=== PATIENT | male | born 1950 | race Caucasian/White ===

== ENCOUNTER 2020-03-15 15:31 | Emergency (ER) | payer MEDICARE, MEDICAID ==
--- NOTE | 2020-03-15 15:33 | EDM.PDOC ---
ED HPI GENERAL MEDICAL PROBLEM - General Stated Complaint: MEDICAL VIA [facility] Time Seen by Provider: 03/15/20 15:31 Source of Information: Reports: Patient, Provider History Limitations: Reports: No Limitations - History of Present Illness INITIAL COMMENTS - FREE TEXT/NARRATIVE: Has had increased shortness of breath and cannot lie flat. Has significant past history of COPD, type 2 diabetes, and a CVA. WAs evaluated in an outside clinic and chest x-ray showed cardiomegaly and congestive heart failure. Troponin was also measured and was elevated. Onset: Today Duration: Getting Worse Location: Reports: Chest - Related Data Allergies Allergy/AdvReac Type Severity Reaction Status Date / Time Iodinated Contrast Media Allergy Mild Rash Verified 03/15/20 16:05 ED ROS GENERAL - Review of Systems Review Of Systems: See Below Reason Not Obtained: Decreased communication skills after CVA Constitutional: Denies: Fever HEENT: Reports: No Symptoms Respiratory: Reports: Shortness of Breath (Can't lay flat.), Wheezing, Cough Cardiovascular: Reports: Chest Pain Endocrine: Reports: Fatigue GI/Abdominal: Denies: Abdominal Pain Skin: Denies: Cyanosis ED EXAM, GENERAL - Physical Exam Exam: See Below Exam Limited By: Other (S/P CVA) General Appearance: Alert, Anxious, Moderate Distress Throat/Mouth: Normal Inspection Head: Atraumatic, Normocephalic Respiratory/Chest: Respiratory Distress, Crackles, Wheezing, Other (tachypnea) Cardiovascular: Regular Rate, Rhythm, No JVD Extremities: Pedal Edema, Other (pitting edema to knees.) Psychiatric: Anxious Course - Vital Signs Text/Narrative:: At 1645 I discussed the patient withAt 164 [facility] . Accepted ther for transport Last Recorded V/S: Last Vital Signs Temp 36.3 C 03/15/20 15:33 Pulse 133 H 03/15/20 16:23 Resp 21 H 03/15/20 16:23 BP 122/82 03/15/20 16:23 Pulse Ox 91 L 03/15/20 16:02 - Orders/Labs/Meds Orders: Active Orders 24 hr Category Date Time Status RT Aerosol Therapy [RC] ASDIRECTED Care 03/15/20 15:41 Active Heparin Sodium/D5W [Heparin 25,000 Units in D5W 500 ML] Med 03/15/20 15:45 Active 25,000 units in 500 ml IV TITRATE Nitroglycerin [Nitrostat] Med 03/15/20 15:42 Active 0.4 mg SL Q5M PRN Sodium Chloride 0.9% [Normal Saline] 1,000 ml Med 03/15/20 15:45 Active IV ASDIRECTED Medication Orders Sodium Chloride (Normal Saline) 1,000 mls @ 75 mls/hr IV ASDIRECTED TEOFILO Last Admin: 03/15/20 16:31 Dose: 75 mls/hr Documented by: PREILOR Heparin Sodium/Dextrose (Heparin 25,000 Units In D5w 500 Ml) 25,000 units in 500 mls @ 37.884 mls/hr IV TITRATE TEOFILO; Protocol Last Admin: 03/15/20 16:32 Dose: 18 units/kg/hr, 37.884 mls/hr Documented by: PREILOR Cosigned by: HERNANDEZ Nitroglycerin (Nitrostat) 0.4 mg SL Q5M PRN PRN Reason: Chest Pain Labs: Laboratory Tests 03/15/20 03/15/20 03/15/20 Range/Units 16:00 16:00 16:00 PT 10.9 (9.5-12.0) sec INR 1.00 (0.80-1.20) Troponin I 0.630 H* (0.000-0.056) ng/mL NT-Pro-B Natriuret Pep 7865 H (5-125) pg/mL Meds: Medications Generic Name Dose Route Start Last Admin Trade Name Freq PRN Reason Stop Dose Admin Sodium Chloride 1,000 mls @ 75 mls/hr 03/15/20 15:45 03/15/20 16:31 Normal Saline IV 75 mls/hr ASDIRECTED TEOFILO Administration Heparin Sodium/Dextrose 25,000 units in 500 mls @ 37.884 mls/hr 03/15/20 15:45 03/15/20 16:32 Heparin 25,000 Units In D5w 500 Ml IV 18 units/kg/hr TITRATE TEOFILO 37.884 mls/hr Administration Protocol 18 UNITS/KG/HR Nitroglycerin 0.4 mg 03/15/20 15:42 Nitrostat SL Q5M PRN Chest Pain Discontinued Medications Generic Name Dose Route Start Last Admin Trade Name Freq PRN Reason Stop Dose Admin Albuterol/Ipratropium 3 ml 03/15/20 15:41 03/15/20 16:30 Duoneb 3.0-0.5 Mg/3 Ml NEB 03/15/20 15:42 3 ml ONETIME ONE Administration Aspirin 324 mg 03/15/20 15:43 03/15/20 16:30 Aspirin PO 03/15/20 15:44 324 mg ONETIME ONE Administration Furosemide 40 mg 03/15/20 15:41 03/15/20 16:30 Lasix IVPUSH 03/15/20 15:42 40 mg ONETIME ONE Administration Departure - Departure Time of Disposition: 16:48 Disposition: DC/Tfer to [facility] Reason for Transfer *Q: Primary PCI Indicated Condition: Fair Clinical Impression: NSTEMI (non-ST elevated myocardial infarction) Congestive heart failure Qualifiers: Heart failure type: combined systolic and diastolic Heart failure chronicity: acute Qualified Code(s): I50.41 - Acute combined systolic (congestive) and diastolic (congestive) heart failure Referrals: Berny Bronson MD [Primary Care Provider] - Sepsis Event Note (ED) - Focused Exam Vital Signs: Vital Signs Temp Pulse Resp BP Pulse Ox 03/15/20 16:23 133 H 21 H 122/82 03/15/20 16:02 78 20 124/71 91 L 03/15/20 15:42 128 H 21 H 122/81 91 L 03/15/20 15:33 36.3 C 78 20 124/71 91 L - My Orders Last 24 Hours: My Active Orders 03/15/20 15:41 RT Aerosol Therapy [RC] ASDIRECTED 03/15/20 15:42 Nitroglycerin [Nitrostat] 0.4 mg SL Q5M PRN 03/15/20 15:45 Heparin Sodium/D5W [Heparin 25,000 Units in D5W 500 ML] 25,000 units in 500 ml IV TITRATE Sodium Chloride 0.9% [Normal Saline] 1,000 ml IV ASDIRECTED - Assessment/Plan Last 24 Hours: My Active Orders 03/15/20 15:41 RT Aerosol Therapy [RC] ASDIRECTED 03/15/20 15:42 Nitroglycerin [Nitrostat] 0.4 mg SL Q5M PRN 03/15/20 15:45 Heparin Sodium/D5W [Heparin 25,000 Units in D5W 500 ML] 25,000 units in 500 ml IV TITRATE Sodium Chloride 0.9% [Normal Saline] 1,000 ml IV ASDIRECTED
[2020-03-15] MEDS ORDERED: Albuterol/Ipratropium 3.0-0.5 MG/3 ML Neb Soln NEB ONE (15:41)
[2020-03-15] MEDS ORDERED: Furosemide 40 MG/4 ML VIAL IVPUSH ONE (15:41)
[2020-03-15] MEDS ORDERED: Nitroglycerin 0.4 MG Tab.SL SL PRN (15:42)
[2020-03-15] MEDS ORDERED: Aspirin 81 MG Tab.Chew PO ONE (15:43)
[2020-03-15] MEDS ORDERED: Heparin Sodium/D5W 25,000 UNITS/500 ML BAG IV SCH (15:45)
[2020-03-15] MEDS ORDERED: Sodium Chloride 0.9% 1,000 ML IV SCH (15:45)
== END 2020-03-15 18:53 | disposition critical access hospital (66) ==
LOC: JP.ED 15:31
DX: I21.4 Non-ST elevation (NSTEMI) myocardial infarction (principal); I50.41 Acute combined systolic (congestive) and diastolic (congestive) heart failure; J44.9 Chronic obstructive pulmonary disease, unspecified; E11.9 Type 2 diabetes mellitus without complications; Z86.73 Personal history of transient ischemic attack (TIA), and cerebral infarction without residual deficits; Z91.041 Radiographic dye allergy status
CPT/HCPCS: 36415; 83880; 84484; 85610; 94640; 96365; 96366; 96375; 99285; A9270; J1644; J1940; J7030; J7620-GY